=== PATIENT | male | born 1995 | race Two or more races ===

== ENCOUNTER 2018-01-08 17:02 | Emergency (ER) | payer MEDICAID ==
--- NOTE | 2018-01-08 17:23 | EDM.PDOC ---
ED HPI GENERAL MEDICAL PROBLEM - General Chief Complaint: Upper Extremity Injury/Pain Stated Complaint: Finger injury Time Seen by Provider: 01/08/18 17:05 Source of Information: Reports: Patient, RN, RN Notes Reviewed History Limitations: Reports: No Limitations - History of Present Illness INITIAL COMMENTS - FREE TEXT/NARRATIVE: Patient presents to the ED at [facility] complaining of finger pain after he sustained an injury to the 5th digit left hand. Patient states he jammed the finger while playing football today at school. No previous injury or trauma to the left hand. Patient denies any numbness, tingling, or paresthesia to the affected site. Onset: Today, Sudden Onset Date: 01/08/18 Onset Time: 16:30 Review of Systems - Review of Systems Review Of Systems: See Below Constitutional: Denies: Chills, Fever, Weakness Respiratory: Denies: Shortness of Breath, Cough Cardiovascular: Denies: Chest Pain, Palpitations Musculoskeletal: Reports: Joint Pain, Joint Swelling Skin: Reports: No Symptoms Neurological: Reports: No Symptoms. Denies: Numbness, Paresthesia, Tingling ED EXAM, GENERAL - Physical Exam Exam: See Below Exam Limited By: No Limitations General Appearance: Alert, No Apparent Distress Respiratory/Chest: No Respiratory Distress, Lungs Clear, Normal Breath Sounds Cardiovascular: Normal Peripheral Pulses, Regular Rate, Rhythm Peripheral Pulses: 2+: Radial (L), Radial (R) Extremities: Limited Range of Motion (obvious bone deformity of the 5th digit left hand) Neurological: Alert, Oriented Skin Exam: Warm, Dry, Intact ED TRAUMA EXTREMITY PROCEDURES - Joint Reduction Site: Finger (L) Sedation: Other (None) Pre-Procedure NV Status: Normal Post-Procedure NV Status: Normal Technique: Traction/Counter Traction Number of Attempts: 1 Post-Reduction Imaging: Completely Reduced, No Fracture Seen Joint Reduction Complications: No Course - Orders/Labs/Meds Orders: Active Orders 24 hr Category Date Time Status Fingers Fifth Digit Lt F4 [CR] Stat Exams 01/08/18 17:10 Taken Fingers Fifth Digit Lt F4 [CR] Stat Exams 01/08/18 17:27 Ordered Departure - Departure Time of Disposition: 17:30 Disposition: Home, Self-Care 01 Condition: Good Clinical Impression: Finger dislocation Qualifiers: Encounter type: initial encounter Qualified Code(s): S63.259A - Unspecified dislocation of unspecified finger, initial encounter - Discharge Information Instructions: Finger or Thumb Dislocation Forms: ED Department Discharge Additional Instructions: 1. Stay well hydrated and rest 2. Rest, elevate, and ice the finger several times a good 3. Avoid activity for the next few days so the tendons can heal 4. Call us with any questions/concerns - Problem List Review Problem List Initiated/Reviewed/Updated: Yes - My Orders Last 24 Hours: My Active Orders 01/08/18 17:10 Fingers Fifth Digit Lt F4 [CR] Stat 01/08/18 17:27 Fingers Fifth Digit Lt F4 [CR] Stat - Assessment/Plan Last 24 Hours: My Active Orders 01/08/18 17:10 Fingers Fifth Digit Lt F4 [CR] Stat 01/08/18 17:27 Fingers Fifth Digit Lt F4 [CR] Stat
== END 2018-01-08 17:40 | disposition home or self-care (01) ==
LOC: VM.ED 17:02
DX: S63.297A Dislocation of distal interphalangeal joint of left little finger, initial encounter (principal); W23.1XXA Caught, crushed, jammed, or pinched between stationary objects, initial encounter; Y93.61 Activity, american tackle football
CPT/HCPCS: 26770; 73140-F4; 99283; 99283-GF-25